=== PATIENT | female | born 2005 | race Caucasian/White ===

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

== ENCOUNTER 2025-01-09 07:55 | Day surgery (SDC) | payer OTHER ==
[2025-01-01 16:30] VITALS: BP 111/75
[~2025-01-09] VITALS: Ht 167.6 cm; Wt 50.9 kg
[~2025-01-09 07:55] MED LIST: CEFAZOLIN SODIUM 2 GM/20 ML SYR IV SCH; HEParin SOD (PORCINE) 5,000 UNIT/ML SDV SUB-Q SCH; IBLOOD GLUCOSE TEST STRIP 1 EA TEST VI PRN; LACTATED RINGER'S 1,000 ML IV SCH; LIDOCAINE HCL 1% 5 ML SDV INJ ONE; NALTREX1.5 MG PO; NP THYROID30 MG PO
[2025-01-09 08:08] VITALS: BP 122/77
[2025-01-09] MEDS ORDERED: TYLENOL325 MG PO (08:13)
[2025-01-09] MEDS ORDERED: LIDOCAINE HCL 2% 5 ML SDV ONE (10:35)
[2025-01-09] MEDS ORDERED: ACETAMINOPHEN 1,000 MG/100 ML VIAL ONE (10:35)
[2025-01-09] MEDS ORDERED: fentaNYL citrate 100 MCG/2 ML VIAL ONE (10:38)
[2025-01-09] MEDS ORDERED: DEXAMETHASONE SOD PHOS 4 MG/ML VIAL ONE (10:38)
[2025-01-09] MEDS ORDERED: KETOROLAC TROMETHAMINE 30 MG/ML VIAL ONE (10:38)
[2025-01-09] MEDS ORDERED: ondansetron HCL 4 MG/2 ML VIAL ONE (10:38)
[2025-01-09] MEDS ORDERED: propofoL 200 MG/20 ML VIAL ONE (10:38)
[2025-01-09] MEDS ORDERED: NALOXONE HCL 0.4 MG SYR IV PRN ×2 (11:00→12:15)
[2025-01-09] MEDS ORDERED: ondansetron HCL 4 MG/2 ML VIAL IV PRN ×2 (11:00→12:15)
[2025-01-09] MEDS ORDERED: IBLOOD GLUCOSE TEST STRIP 1 EA TEST VI PRN (11:00)
[2025-01-09] MEDS ORDERED: droPERidol 5 MG/2 ML VIAL IV PRN (11:00)
[2025-01-09] MEDS ORDERED: fentaNYL citrate 50 MCG/ML SDV IV PRN (11:00)
[2025-01-09] MEDS ORDERED: HYDROmorphone HCL 1 MG/ML SYR IV PRN (12:15)
[2025-01-09] MEDS ORDERED: PROCHLORPERAZINE EDISYLATE 10 MG/2 ML VIAL IV PRN (12:15)
--- NOTE | 2025-01-09 12:20 | NUR ---
01/09/25 1220 [address] 1156 PT ARRIVED IN PACU NON RESPONSIVE TO NOXIOUS STIMULI WITH OPA IN PLACE. 1220 NO CHANGE IN PT STATUS. ICE TO R SHOULDER.
[2025-01-09 12:37] VITALS: BP 98/47
--- NOTE | 2025-01-09 12:42 | OR ---
[facility] [address] [place], [place] [address] Signed DATE OF OPERATION: 01/09/2025 SURGEON: Tommy Encarnacion MD PREOPERATIVE DIAGNOSES: Anterior right shoulder subcutaneous mass (3 x 4 cm). POSTOPERATIVE DIAGNOSIS: Epidermal inclusion cyst. PROCEDURE: Excision of epidermal inclusion cyst, right shoulder. ESTIMATED BLOOD LOSS: None. INDICATIONS: Felecia is a 19-year-old female asked to see me for 3 x 4 cm oval shape subcutaneous mass on the anterior aspect of the right shoulder. It is just about where the deltoid meets the arm. She said it has been there for years. It seems to come and go, but over the years it has gotten larger. The rechecker thought it was probably an epidermal inclusion cyst. She had a tremendous amount of anxiety and was afraid to have it removed. She said she just cannot be awake and have someone cutting on her arm. Nevertheless, it is to the point that the size precludes doing in the office. I told her it would be best to do it in the OR with our staff helping to remove it very carefully. She told me to her knowledge it has never been infected or broke through her skin. She thinks her sister has had similar lesions. I had met with Felecia and her mom in our preop area. We could all easily identify the lesion and marked it appropriately. We reviewed the concept of epidermal inclusion cyst versus a lipoma. They understand a radial incision we made over this to excise it completely. We will close that primarily. There is risk to surgery including, but not limited to bleeding, infection, scarring, change in contour of the skin as well as possible need for additional surgery or treatments based on pathologic results. They understand that epidermal inclusion cyst and lipomas can recur in the same or other locations. This will be a day surgery and she will go home afterwards. They had expressed understanding and wished to proceed. DESCRIPTION OF PROCEDURE: Felecia was taken into our operating room and placed in the supine position under general LMA anesthesia. She was given preoperative antibiotics along with subcutaneous Electronically Signed By: TOMMY ENCARNACION MD 01/09/25 1242 PATIENT NAME: FELECIA HOLLY OPERATIVE REPORT DATE OF : 04 REPORT #: [id number] PHYSICIAN: TOMMY ENCARNACION MD PCP: PARAMJIT MO PA-C REPORT IS CONFIDENTIAL AND NOT TO BE RELEASED WITHOUT AUTHORIZATION [facility] [address] [place], [place] [address] Signed heparin. SCDs were utilized. She was prepped and draped in the usual sterile fashion. A radial incision was made over the lesion very carefully with a 15 blade knife as we worked our way around, we realized indeed this is an inclusion cyst. It has been there long enough that the tissue was quite thinned out. We had to excise the whole thing sharply with a 15 blade knife. A couple of small bleeders were controlled with the cautery. The entire epidermal inclusion cyst was passed off the field. We injected local anesthetic into the wound. The wound was irrigated and suctioned out until clear. We brought the adipose tissue and dermis together with interrupted 3-0 subcuticular Monocryl sutures. The skin edges were reapproximated with a running 5-0 fast absorbing plain gut suture. Dry gauze and tape were then applied. Felecia was then awakened from her anesthesia, extubated in the OR, taken to recovery room in stable condition. Tommy Encarnacion MD ALB/MODL /[id number] cc: RAIN Langford MD Copies: PARAMJIT MO PA-C, ANDREW L MD ~ Electronically Signed By: TOMMY ENCARNACION MD 01/09/25 1242 PATIENT NAME: FELECIA HOLLY [facility] OPERATIVE REPORT DATE OF : 04 REPORT #: [id number] PHYSICIAN: TOMMY ENCARNACION MD PCP: PARAMJIT MO PA-C REPORT IS CONFIDENTIAL AND NOT TO BE RELEASED WITHOUT AUTHORIZATION
--- NOTE | 2025-01-09 12:49 | NUR ---
1237- PT ARRIVES FROM PACU. BEDSIDE REPORT RECIEVED FROM [facility]. SURGICAL SITE ASSESSED TOGETHER AND IT IS CDI. PT IS SAY UP IN BED AND SIPPING ON WATER AND EATING PUDDING. PT TOLERATING WELL. PT AND RN DISCUSSED DISCHARGE CRITERIA. LR INFUSING. BED IS IN THE LOWEST POSITION AND LOCKED AND CALL LIGHT IN REACH. ALL QUESTIONS AND CONCERNS ANSWERED.
[2025-01-09] MEDS ORDERED: SEVOFLURANE 250 ML BTL INH ONE (12:57)
[2025-01-09 13:33] VITALS: BP 101/55
--- NOTE | 2025-01-09 13:55 | NUR ---
1330- VITAL SIGNS OBTAINED. PT DENIES PAIN AND NAUSEA. SURGICAL SITE IS CDI. PT GIVEN A REFILL ON WATER AND A NEW ICE PACK. PT STATES FEELING TO HER RIGHT ARM IS NORMAL. CMS IS WNL. DC INSTRUCTION GONE OVER AND ALL QUESTIONS AND CONCERNS ANSWERED. 1340- PT AMBULATES INDEPENDENTLY TO THE RESTROOM WITH A STEADY AND EVEN GAIT. 1346- PT RETURNS TO ROOM AND GETTING DRESSED INDEPENDENTLY. IV DC'D. PT HAS ALL BELONGINGS. PT AMBULATES TO THE WHEELCHAIR WITH NO ISSUES AND DENIES QUESTIONS AND CONCERNS. PT DC FROM DAY SURGERY AT THIS TIME.
--- NOTE | 2025-01-11 16:48 | PATH ---
[facility] [address], [place] [address] Signed SPECIMEN(S): A RIGHT SHOULDER SPECIMEN SOURCE: A. RIGHT SHOULDER CLINICAL HISTORY: Epidermal inclusion cyst FINAL PATHOLOGIC DIAGNOSIS: Right shoulder mass: - Benign squamous epidermal inclusion cyst. JVR:[facility] MICROSCOPIC EXAMINATION: Histologic sections of all submitted blocks are examined by light microscopy. These findings, together with the gross examination, support the pathologic diagnosis. GROSS DESCRIPTION: The specimen, labeled and designated "Nina Holly, right shoulder mass per requisition," is received in formalin and consists of a 4.2 x 3 x 1.9 cm conn-white cystic structure filled with a sebaceous material. The specimen serially sectioned revealing a cyst wall averages 0.1 cm in thickness. There are no discrete areas of hemorrhage or necrosis. Inside Wireman sections are submitted in cassette A1. AA (under the direct supervision of a pathologist) The Gross Description was prepared using a voice recognition system. The report was reviewed for accuracy; however, sound-alike word errors, addition and/or deletions may occur. If there is any question about this report, please contact Client Services. PERFORMING LABORATORY: Technical component was performed by [facility], [address] [place] [id number] (CLIA# [id number]). Professional interpretation was performed by [facility], [address] [place] [id number] (CLIA#: [id number]). Diagnostician: Jordan England MD Pathologist Electronically Signed 01/11/2025 PATIENT NAME: ZACHARY HOLLY PATHOLOGY DATE OF : 04 REPORT #: [id number] PHYSICIAN: [facility] PCP: PARAMJIT MO PA-C REPORT IS CONFIDENTIAL AND NOT TO BE RELEASED WITHOUT AUTHORIZATION [address] [place], [place] [address] Signed Copies: ~ PATIENT NAME: ZACHARY HOLLY PATHOLOGY DATE OF : 04 REPORT #: [id number] PHYSICIAN: [facility] PCP: PARAMJIT MO PA-C REPORT IS CONFIDENTIAL AND NOT TO BE RELEASED WITHOUT AUTHORIZATION
== END 2025-01-09 13:46 | disposition home or self-care (01) ==
LOC: DS 07:55
PROVIDERS: ATTEND Colon & Rectal Surgery
PROC: 0JBD0ZZ Excision of Right Upper Arm Subcutaneous Tissue and Fascia, Open Approach (ICD-10-PCS; principal; 2025-01-09 09:00)
DX: L72.0 Epidermal cyst (principal); E03.9 Hypothyroidism, unspecified; Z79.890 Hormone replacement therapy; Z88.0 Allergy status to penicillin
CPT/HCPCS: 00400; 88304; J0131; J0690; J1100; J1644; J1885; J2003; J2405; J2704; J3010; J7121